=== PATIENT | female | born 1940 | race Caucasian/White ===

== ENCOUNTER 2023-05-20 18:28 | Emergency (ER) | payer OTHER ==
[~2023-05-20] VITALS: Ht 149.9 cm; Wt 45.6 kg
[2023-05-20 18:48] LABS: BASOPHILS % (AUTO) 0.6 % (0-1); EOSINOPHILS # (AUTO) 0.1 X10'3 (0-0.9); EOSINOPHILS % (AUTO) 0.8 % (0-6); HEMATOCRIT 41.1 % (35.0-45.0); HEMOGLOBIN 13.9 g/dl (12.0-16.0); LYMPHOCYTES # (AUTO) 1.7 X10'3 (1.1-4.8); LYMPHOCYTES % (AUTO) 19.9 % (21-51); MEAN CORPUSCULAR HEMOGLOBIN 32.8 PG (27.0-31.0); MEAN CORPUSCULAR HGB CONC 33.9 g/dL (33.0-36.5); MEAN CORPUSCULAR VOLUME 96.8 FL (78-98); MEAN PLATELET VOLUME 7.5 FL (7.4-10.4); MONOCYTES # (AUTO) 0.7 X10'3 (0-0.9); MONOCYTES % (AUTO) 7.6 % (2-12); NEUTROPHILS # (AUTO) 6.2 X10'3 (1.8-7.7); NEUTROPHILS % (AUTO) 71.1 % (42-75); PLATELET COUNT 384 X10'3 (140-440); RED BLOOD COUNT 4.25 X10'6 (4.20-5.60); RED CELL DISTRIBUTION WIDTH 13.1 % (11.5-14.5); WHITE BLOOD COUNT 8.6 X10'3 (4.5-11.0)
[2023-05-20 19:06] LABS: ALANINE AMINOTRANSFERASE 14 U/L (12-78); ALBUMIN 4.3 G/DL (3.4-5.0); ALBUMIN/GLOBULIN RATIO 1.2 (1.1-1.5); ALKALINE PHOSPHATASE 42 IU/L (46-116); ASPARTATE AMINO TRANSFERASE 13 U/L (10-37); BILIRUBIN,TOTAL 0.8 MG/DL (0.1-1.0); BLOOD UREA NITROGEN 4 MG/DL (7-18); BUN/CREATININE RATIO 4.4 (10.0-20.0); CALCIUM 9.2 MG/DL (8.5-10.1); GLUCOSE 125 MG/DL (70-104); PRO BRAIN NATRIURETIC PEPTIDE 204 PG/ML (0-450); TOTAL CARBON DIOXIDE 26.9 MMOL/L (24-32); TOTAL PROTEIN 7.8 G/DL (6.4-8.2); eCRCL 33 ML/MIN; eGFR 60 ML/MIN
[2023-05-20 19:16] LABS: ANION GAP 9 (8-16); CHLORIDE 98 MMOL/L (99-107); POTASSIUM 3.2 MMOL/L (3.5-5.1); SODIUM 134 MMOL/L (135-145)
[2023-05-20] MEDS ORDERED: sucralfate 1 gm tablet PO ONE (22:50)
[2023-05-20] MEDS ORDERED: famotidine/PF 10 mg/ml inj IV ONE (22:50)
[2023-05-20] MEDS ORDERED: ondansetron/PF 4mg/2ml inj IV ONE (22:50)
[2023-05-20] MEDS ORDERED: mag hydrox/Alum hydrox/simeth 30ml oral suspension PO ONE (22:50)
[2023-05-20] MEDS: morphine 2 MG/ML inj. syringe IV PRN (23:00)
[2023-05-20] MEDS ORDERED: potassium chloride 8mEq ER tablet PO STA (23:22)
[2023-05-21] MEDS ORDERED: MAG355OR18 PO (00:48)
[2023-05-21] MEDS ORDERED: PANT-47 PO (00:48)
[2023-05-21] MEDS ORDERED: ONDA4TAB12 PO (00:48)
[2023-05-21] MEDS ORDERED: SUCR1TAB34 PO (00:48)
[2023-05-21] MEDS ORDERED: FAMO-129 PO (00:48)
[2023-05-21 01:00] VITALS: RESP 18
[2023-05-21] MEDS: morphine 2 MG/ML inj. syringe IV PRN (01:00)
[2023-05-21 01:10] VITALS: BP 158/92; PULSE 68; TEMP 98.1; O2SAT 99
== END 2023-05-21 01:07 | disposition home or self-care (01) ==
LOC: ER 18:28 → EDSEX 18:28 → ER 05-21 01:07
DX: R10.30 Lower abdominal pain, unspecified (principal); R51.9 Headache, unspecified; R19.7 Diarrhea, unspecified
CPT/HCPCS: 36415; 71045; 76700; 80053; 83880; 84484; 85025; 93005; 96374; 96375; 96376; 99285; J2270; J2405; J3490

== ENCOUNTER 2024-01-04 23:31 | Inpatient (IN) | payer MEDICARE, OTHER ==
[~2024-01-04] VITALS: Ht 149.9 cm; Wt 39.0 kg
[~2024-01-04 23:31] MED LIST: FAMO-129 PO; ONDA-243 PO; PANT-47 PO; SUCR1TAB34 PO
[2024-01-05] VITALS (46 sets, daily range): BP systolic 85–151; BP diastolic 41–73; PULSE 64–104; RESP 8–19; O2SAT 95–100
[2024-01-05 00:17] LABS: BASOPHILS # (AUTO) 0.1 X10'3 (0-0.2); BASOPHILS % (AUTO) 0.6 % (0-1); EOSINOPHILS # (AUTO) 0.1 X10'3 (0-0.9); EOSINOPHILS % (AUTO) 1.2 % (0-6); HEMATOCRIT 35.1 % (35.0-45.0); HEMOGLOBIN 12.1 g/dl (12.0-16.0); LYMPHOCYTES # (AUTO) 1.2 X10'3 (1.1-4.8); LYMPHOCYTES % (AUTO) 12.9 % (21-51); MEAN CORPUSCULAR HEMOGLOBIN 32.3 PG (27.0-31.0); MEAN CORPUSCULAR HGB CONC 34.4 g/dL (33.0-36.5); MEAN CORPUSCULAR VOLUME 93.9 FL (78-98); MEAN PLATELET VOLUME 7.8 FL (7.4-10.4); MONOCYTES # (AUTO) 0.7 X10'3 (0-0.9); MONOCYTES % (AUTO) 7.2 % (2-12); NEUTROPHILS # (AUTO) 7.3 X10'3 (1.8-7.7); NEUTROPHILS % (AUTO) 78.1 % (42-75); PLATELET COUNT 334 X10'3 (140-440); RED BLOOD COUNT 3.74 X10'6 (4.20-5.60); RED CELL DISTRIBUTION WIDTH 13.8 % (11.5-14.5); WHITE BLOOD COUNT 9.4 X10'3 (4.5-11.0)
[2024-01-05] MEDS: ondansetron/PF 4mg/2ml inj IV ONE (00:30)
[2024-01-05] MEDS: normal saline 1000ml 1,000 ML IV ONE (00:30)
[2024-01-05] MEDS: morphine 2 MG/ML inj. syringe IV ONE ×2 (00:31→01:00)
[2024-01-05 00:44] LABS: ALANINE AMINOTRANSFERASE 9 U/L (12-78); ALBUMIN 3.2 G/DL (3.4-5.0); ALKALINE PHOSPHATASE 30 IU/L (46-116); ANION GAP 11 (8-16); ASPARTATE AMINO TRANSFERASE 13 U/L (10-37); BILIRUBIN,TOTAL 0.3 MG/DL (0.1-1.0); BLOOD UREA NITROGEN 8 MG/DL (7-18); BUN/CREATININE RATIO 11.1 (10.0-20.0); CALCIUM 8.5 MG/DL (8.5-10.1); CHLORIDE 97 MMOL/L (99-107); CREATININE 0.72 MG/DL (0.40-0.90); GLUCOSE 99 MG/DL (70-104); LIPASE 32 U/L (16-77); PRO BRAIN NATRIURETIC PEPTIDE 421 PG/ML (0-450); SODIUM 132 MMOL/L (135-145); TOTAL CARBON DIOXIDE 24.2 MMOL/L (24-32); TOTAL PROTEIN 6.3 G/DL (6.4-8.2); eCRCL 35 ML/MIN; eGFR 78 ML/MIN
[2024-01-05 00:45] LABS: POTASSIUM 2.1 MMOL/L (3.5-5.1)
[2024-01-05] MEDS ORDERED: iohexol 300mg/ml 100ml inj. ONE (01:01)
[2024-01-05 03:04] LABS: BILIRUBIN,URINE NEGATIVE (Neg); CLARITY,URINE CLEAR (Clear); COLOR,URINE STRAW (Yellow); GLUCOSE, URINE NEGATIVE (Neg); KETONES,URINE NEGATIVE (Neg); LEUKOCYTE ESTERASE ,URINE NEGATIVE (Neg); NITRITES, URINE NEGATIVE (Neg); OCCULT BLOOD,URINE NEGATIVE (Neg); PH,URINE 6.5 (4.8-8.0); PROTEIN,URINE NEGATIVE (Neg); UROBILINOGEN,URINE 0.2 E.U/dL (0.2-1.0)
[2024-01-05 03:09] LABS: UA COLLECTION TYPE CLN CATCH MIDSTREAM
[2024-01-05] MEDS ORDERED: potassium CL 10mEq/100ml bag 100 ML IV SCH (03:25)
[2024-01-05] MEDS: potassium Cl 20 mEq SR tablet PO STA (04:21)
[2024-01-05] MEDS: HYDROmorphone 1 mg/ml syringe IV ONE (04:21)
[2024-01-05] MEDS: potassium CL 10mEq/100ml bag 100 ML IV SCH ×2 (04:29→05:37)
[2024-01-05] MEDS: pantoprazole 40 MG vial IV ONE (05:03)
[2024-01-05] MEDS ORDERED: potassium Cl 20 mEq SR tablet PO PRN ×2 (05:05)
[2024-01-05] MEDS ORDERED: magnesium hydroxide 30ml (MOM) UD suspension PO PRN (05:05)
[2024-01-05] MEDS ORDERED: magnesium Cl slow-release 64mg tablet PO PRN (05:05)
[2024-01-05] MEDS ORDERED: HYDROmorphone inj. 0.5 MG/0.5 ML DISP.SYRIN IV PRN (05:05)
[2024-01-05] MEDS ORDERED: potassium Cl 40MEQ/1/2NS 520ml 520 ML IV PRN (05:05)
[2024-01-05] MEDS ORDERED: mag hydrox/Alum hydrox/simeth 30ml oral suspension PO PRN (05:05)
[2024-01-05] MEDS ORDERED: acetaminophen 325mg tablet PO PRN (05:05)
[2024-01-05] MEDS ORDERED: morphine 2 MG/ML inj. syringe IV PRN (05:05)
[2024-01-05] MEDS: piperacillin/tazo 3.375gm/50ml 50 ML IV SCH (05:06)
[2024-01-05] MEDS ORDERED: IBUP-1986 PO (05:30)
[2024-01-05] MEDS ORDERED: ATOR40TA72 PO (05:30)
[2024-01-05] MEDS ORDERED: SUCR1TAB PO (05:30)
[2024-01-05] MEDS ORDERED: DONE-46 PO (05:30)
[2024-01-05] MEDS ORDERED: AMLO5TAB16 PO (05:30)
[2024-01-05] MEDS ORDERED: VENL37.589 PO (05:30)
[2024-01-05] MEDS ORDERED: BUSP10TA3 PO (05:30)
[2024-01-05] MEDS ORDERED: ONDA-243 PO (05:30)
[2024-01-05] MEDS: normal saline 1000ml 1,000 ML IV SCH (05:54)
[2024-01-05 06:07] LABS: APTT 25 SECONDS (22-32); PROTHROMBIN TIME 10.3 SECONDS (9.0-12.0)
[2024-01-05] MEDS ORDERED: midazolam 1 mg/ML 2ml injection ONE (06:07)
[2024-01-05] MEDS ORDERED: fentaNYL/PF 50MCG/1 ML 2ML syringe ONE (06:07)
[2024-01-05] MEDS ORDERED: ceFOXitin 2,000 MG/NS 100 ML ADD-VANTAGE bag IV ONE (06:12)
[2024-01-05 06:15] LABS: MAGNESIUM 1.4 MG/DL (1.5-2.4)
[2024-01-05 06:22] LABS: POTASSIUM 2.2 MMOL/L (3.5-5.1)
[2024-01-05] MEDS ORDERED: ePHEDrine 50MG/ML INJ. ONE (07:14)
[2024-01-05] MEDS ORDERED: propofol inj 20 ML IV ONE (07:14)
[2024-01-05] MEDS ORDERED: 0.9 % SODIUM CHLORIDE 10 ML VIAL ONE (07:14)
[2024-01-05] MEDS ORDERED: LIDOcaine 2% (20mg/ml) 5ml vial ONE (07:14)
[2024-01-05] MEDS ORDERED: rocuronium 10mg/ml inj IV ONE (07:14)
[2024-01-05] MEDS ORDERED: LIDOcaine 1% (10mg/ml) 2ml vial ONE (07:15)
[2024-01-05] MEDS ORDERED: dexamethasone sod phosphate 4mg/ml inj. ONE (07:16)
[2024-01-05] MEDS ORDERED: ondansetron/PF 4mg/2ml inj ONE (07:16)
[2024-01-05] MEDS: BUPIVACAINE liposomal/PF 13.3 MG/ML vial IM ONE (07:26)
[2024-01-05] MEDS: BUPIVAcaine/PF 2.5mg/ml (0.25%) 10ml vial ONE (07:26)
[2024-01-05] MEDS ORDERED: labetalol 20mg/4ml (5mg/ml) syringe IV PRN (07:30)
[2024-01-05] MEDS: ringers solution, lacted 1,000 ML IV SCH (07:30)
[2024-01-05] MEDS ORDERED: ondansetron/PF 4mg/2ml inj IV PRN (07:30)
[2024-01-05] MEDS ORDERED: proCHLORperazine 10 MG/2 ml inj IV PRN (07:30)
[2024-01-05] MEDS ORDERED: hydrALAZINE 20mg/ml inj. IV PRN (07:30)
[2024-01-05] MEDS: docusate sod 100mg capsule PO SCH (08:00)
[2024-01-05] MEDS ORDERED: pantoprazole 40MG/NS 100ML BAG 100 ML IV SCH (08:00)
[2024-01-05] MEDS ORDERED: glycopyrrolate 0.2mg/ml inj ONE (08:13)
[2024-01-05] MEDS ORDERED: neostigmine methylsulfate 1 MG/ML 10ml vial ONE (08:13)
[2024-01-05] MEDS ORDERED: sugammadex 200mg/2ml injection IV ONE (08:19)
[2024-01-05 08:43] LABS: ABG BASE EXCESS -8.9 mmol/L (-2.0-2.0); ABG HCO3 19.3 mmol/L (22.0-26.0); ABG OXYGEN SATURATION 91.2 % (92-98.5); ABG PCO2 (T) 49.7 mmHg (32.0-45.0); ABG PH (T) 7.203 (7.350-7.450); ABG PO2 (T) 67.8 mmHg (75.0-100.0); FCOHb 0.9 % (0.5-1.5); FHHb 8.7 % (0.0-5.0); FLOW 10 L/min; FMetHb 0.1 % (0.0-1.5); FO2Hb 90.3 % (94-97); MODE MASK - SIMPLE; PATIENT TEMPERATURE 36.3; TOTAL HEMOGLOBIN 12.4 G/dl (12.0-16.0)
[2024-01-05] MEDS: meperidine/PF 25mg/ml syringe IV PRN (08:44)
[2024-01-05 08:47] LABS: ISTAT ANION GAP 12 (8-12); ISTAT BUN 6 mg/dL (7-18); ISTAT CL 103 mmol/L (99-107); ISTAT CREATININE 0.5 mg/dL (0.6-1.1); ISTAT GLUCOSE 118 mg/dL (70-104); ISTAT HGB 11.6 g/dl (12.0-16.0); ISTAT Hct 34 %PCV (35-45); ISTAT IONIZED CALCIUM 1.13 mmol/L (1.03-1.32); ISTAT K 3.4 mmol/L (3.5-5.1); ISTAT NA 135 mmol/L (135-145); ISTAT TOTAL CO2 20 mmol/L (24-32); ISTAT eGFR > 90 ML/MIN
[2024-01-05] MEDS: pantoprazole 40MG/NS 100ML BAG 100 ML IV SCH (09:07)
[2024-01-05] MEDS: HYDROmorphone/PF 0.2 MG/ML SYRINGE IV PRN ×2 (09:25→18:48)
[2024-01-05] MEDS: morphine 2 MG/ML inj. syringe IV PRN ×2 (09:31→21:42)
[2024-01-05 09:49] LABS: ABG BASE EXCESS -8.6 mmol/L (-2.0-2.0); ABG HCO3 19.5 mmol/L (22.0-26.0); ABG OXYGEN SATURATION 90.2 % (92-98.5); ABG PCO2 (T) 51.4 mmHg (32.0-45.0); ABG PH (T) 7.198 (7.350-7.450); ABG PO2 (T) 67.4 mmHg (75.0-100.0); FCOHb 0.8 % (0.5-1.5); FHHb 9.7 % (0.0-5.0); FLOW 2 L/min; FMetHb 0.3 % (0.0-1.5); FO2Hb 89.2 % (94-97); MODE NASAL CANNULA; TOTAL HEMOGLOBIN 12.9 G/dl (12.0-16.0)
[2024-01-05] MEDS: sodium bicarbonate 1meq/ml inj 150 ML in dextrose 5%-water 1,000 ML IV SCH (11:00)
[2024-01-05 13:04] LABS: ABG BASE EXCESS -5.1 mmol/L (-2.0-2.0); ABG HCO3 22.2 mmol/L (22.0-26.0); ABG OXYGEN SATURATION 96.6 % (92-98.5); ABG PCO2 (T) 50.1 mmHg (32.0-45.0); ABG PH (T) 7.262 (7.350-7.450); ABG PO2 (T) 90.6 mmHg (75.0-100.0); FCOHb 0.5 % (0.5-1.5); FHHb 3.4 % (0.0-5.0); FLOW 2 L/min; FO2Hb 96.1 % (94-97); MODE NASAL CANNULA; PATIENT TEMPERATURE 36.4; TOTAL HEMOGLOBIN 11.7 G/dl (12.0-16.0)
[2024-01-05 13:19] LABS: ALBUMIN 2.4 G/DL (3.4-5.0); ANION GAP 8 (8-16); BLOOD UREA NITROGEN 6 MG/DL (7-18); BUN/CREATININE RATIO 9.5 (10.0-20.0); CALCIUM 7.1 MG/DL (8.5-10.1); CHLORIDE 104 MMOL/L (99-107); CREATININE 0.63 MG/DL (0.40-0.90); GLUCOSE 150 MG/DL (70-104); SODIUM 136 MMOL/L (135-145); TOTAL CARBON DIOXIDE 24.1 MMOL/L (24-32); eCRCL 41 ML/MIN; eGFR 90 ML/MIN
[2024-01-05 13:22] LABS: POTASSIUM 2.6 MMOL/L (3.5-5.1)
[2024-01-05] MEDS: potassium Cl 20mEq/100mL bag 100 ML IV SCH (13:48)
[2024-01-05 14:12] LABS: MAGNESIUM 1.1 MG/DL (1.5-2.4)
[2024-01-05] MEDS ORDERED: potassium CL 10mEq/100ml bag 100 ML IV PRN (14:20)
[2024-01-05] MEDS: magnesium sulf-water 4G/100mL 100 ML IV PRN (14:23)
[2024-01-05] MEDS: potassium Cl 20mEq/100mL bag 100 ML IV PRN (17:10)
[2024-01-05] MEDS: magnesium sulf-water 2g/50mL 50 ML IV PRN (18:48)
[2024-01-06] VITALS (21 sets, daily range): BP systolic 94–150; BP diastolic 36–109; PULSE 62–79; RESP 11–22; TEMP 97.8; O2SAT 90–99
[2024-01-06 01:40] LABS: BASOPHILS % (AUTO) 0 % (0-1); EOSINOPHILS % (AUTO) 0 % (0-6); HEMATOCRIT 29.5 % (35.0-45.0); HEMOGLOBIN 9.8 g/dl (12.0-16.0); LYMPHOCYTES # (AUTO) 0.5 X10'3 (1.1-4.8); LYMPHOCYTES % (AUTO) 2.9 % (21-51); MEAN CORPUSCULAR HEMOGLOBIN 31.5 PG (27.0-31.0); MEAN CORPUSCULAR HGB CONC 33.3 g/dL (33.0-36.5); MEAN CORPUSCULAR VOLUME 94.7 FL (78-98); MEAN PLATELET VOLUME 8.3 FL (7.4-10.4); MONOCYTES # (AUTO) 0.9 X10'3 (0-0.9); MONOCYTES % (AUTO) 4.8 % (2-12); NEUTROPHILS # (AUTO) 16.6 X10'3 (1.8-7.7); NEUTROPHILS % (AUTO) 92.3 % (42-75); PLATELET COUNT 278 X10'3 (140-440); RED BLOOD COUNT 3.12 X10'6 (4.20-5.60); RED CELL DISTRIBUTION WIDTH 13.8 % (11.5-14.5); WHITE BLOOD COUNT 17.9 X10'3 (4.5-11.0)
[2024-01-06 01:55] LABS: ALANINE AMINOTRANSFERASE 13 U/L (12-78); ALBUMIN 2.1 G/DL (3.4-5.0); ALBUMIN/GLOBULIN RATIO 0.8 (1.1-1.5); ALKALINE PHOSPHATASE 21 IU/L (46-116); ANION GAP 8 (8-16); ASPARTATE AMINO TRANSFERASE 15 U/L (10-37); BILIRUBIN,TOTAL 0.4 MG/DL (0.1-1.0); BLOOD UREA NITROGEN 8 MG/DL (7-18); CALCIUM 7.3 MG/DL (8.5-10.1); CHLORIDE 106 MMOL/L (99-107); CREATININE 0.57 MG/DL (0.40-0.90); GLUCOSE 122 MG/DL (70-104); MAGNESIUM 3.1 MG/DL (1.5-2.4); PHOSPHORUS 2.3 MG/DL (2.3-4.5); POTASSIUM 3.8 MMOL/L (3.5-5.1); SODIUM 138 MMOL/L (135-145); TOTAL CARBON DIOXIDE 24.2 MMOL/L (24-32); TOTAL PROTEIN 4.8 G/DL (6.4-8.2); eCRCL 45 ML/MIN; eGFR > 90 ML/MIN
[2024-01-06 04:38] LABS: ABG BASE EXCESS -3.3 mmol/L (-2.0-2.0); ABG HCO3 20.9 mmol/L (22.0-26.0); ABG OXYGEN SATURATION 97.1 % (92-98.5); ABG PCO2 (T) 34.6 mmHg (32.0-45.0); ABG PO2 (T) 95.3 mmHg (75.0-100.0); FCOHb 0.3 % (0.5-1.5); FHHb 2.9 % (0.0-5.0); FMetHb 0.3 % (0.0-1.5); FO2Hb 96.5 % (94-97); PATIENT TEMPERATURE 37.1; TOTAL HEMOGLOBIN 10.6 G/dl (12.0-16.0)
[2024-01-06] MEDS: HYDROmorphone inj. 0.5 MG/0.5 ML DISP.SYRIN IV PRN (09:04)
[2024-01-06] MEDS: ondansetron/PF 4mg/2ml inj IV PRN (13:39)
[2024-01-06] MEDS: HYDROcodone/acetaminophen 5mg/325mg tablet PO PRN (17:33)
[2024-01-07] VITALS (9 sets, daily range): BP systolic 104–144; BP diastolic 48–75; PULSE 63–69; RESP 12–20; TEMP 97.1–98.8; O2SAT 91–98
[2024-01-07 07:23] LABS: BASOPHILS % (AUTO) 0.3 % (0-1); EOSINOPHILS % (AUTO) 0.1 % (0-6); HEMATOCRIT 35.7 % (35.0-45.0); HEMOGLOBIN 11.4 g/dl (12.0-16.0); LYMPHOCYTES % (AUTO) 6.5 % (21-51); MEAN CORPUSCULAR HEMOGLOBIN 31.3 PG (27.0-31.0); MEAN CORPUSCULAR HGB CONC 31.8 g/dL (33.0-36.5); MEAN CORPUSCULAR VOLUME 98.4 FL (78-98); MEAN PLATELET VOLUME 8.5 FL (7.4-10.4); MONOCYTES # (AUTO) 0.6 X10'3 (0-0.9); MONOCYTES % (AUTO) 4.3 % (2-12); NEUTROPHILS # (AUTO) 13.2 X10'3 (1.8-7.7); NEUTROPHILS % (AUTO) 88.8 % (42-75); PLATELET COUNT 255 X10'3 (140-440); RED BLOOD COUNT 3.63 X10'6 (4.20-5.60); RED CELL DISTRIBUTION WIDTH 14.5 % (11.5-14.5); WHITE BLOOD COUNT 14.9 X10'3 (4.5-11.0)
[2024-01-07 07:39] LABS: ALANINE AMINOTRANSFERASE 22 U/L (12-78); ALBUMIN 2.3 G/DL (3.4-5.0); ALBUMIN/GLOBULIN RATIO 0.7 (1.1-1.5); ALKALINE PHOSPHATASE 43 IU/L (46-116); ANION GAP 8 (8-16); ASPARTATE AMINO TRANSFERASE 27 U/L (10-37); BILIRUBIN,TOTAL 0.6 MG/DL (0.1-1.0); BLOOD UREA NITROGEN 6 MG/DL (7-18); BUN/CREATININE RATIO 11.1 (10.0-20.0); CALCIUM 8.2 MG/DL (8.5-10.1); CHLORIDE 108 MMOL/L (99-107); CREATININE 0.54 MG/DL (0.40-0.90); GLUCOSE 72 MG/DL (70-104); MAGNESIUM 2.2 MG/DL (1.5-2.4); PHOSPHORUS 2.2 MG/DL (2.3-4.5); POTASSIUM 3.5 MMOL/L (3.5-5.1); SODIUM 139 MMOL/L (135-145); TOTAL CARBON DIOXIDE 22.6 MMOL/L (24-32); TOTAL PROTEIN 5.6 G/DL (6.4-8.2); eCRCL 49 ML/MIN; eGFR > 90 ML/MIN
[2024-01-08 02:00] VITALS: BP 135/69; PULSE 65; RESP 18; TEMP 97.4; O2SAT 98
[2024-01-08 06:00] VITALS: BP 123/59; PULSE 69; RESP 18; TEMP 98.2; O2SAT 97
[2024-01-08 06:50] LABS: BASOPHILS % (AUTO) 0.3 % (0-1); EOSINOPHILS # (AUTO) 0.1 X10'3 (0-0.9); EOSINOPHILS % (AUTO) 0.5 % (0-6); HEMATOCRIT 36.2 % (35.0-45.0); HEMOGLOBIN 12.1 g/dl (12.0-16.0); LYMPHOCYTES # (AUTO) 0.9 X10'3 (1.1-4.8); LYMPHOCYTES % (AUTO) 8.2 % (21-51); MEAN CORPUSCULAR HEMOGLOBIN 31.9 PG (27.0-31.0); MEAN CORPUSCULAR HGB CONC 33.4 g/dL (33.0-36.5); MEAN CORPUSCULAR VOLUME 95.6 FL (78-98); MEAN PLATELET VOLUME 8.5 FL (7.4-10.4); MONOCYTES # (AUTO) 0.5 X10'3 (0-0.9); MONOCYTES % (AUTO) 4.4 % (2-12); NEUTROPHILS % (AUTO) 86.6 % (42-75); PLATELET COUNT 307 X10'3 (140-440); RED BLOOD COUNT 3.79 X10'6 (4.20-5.60); RED CELL DISTRIBUTION WIDTH 13.7 % (11.5-14.5); WHITE BLOOD COUNT 10.4 X10'3 (4.5-11.0)
[2024-01-08 07:06] LABS: ALANINE AMINOTRANSFERASE 24 U/L (12-78); ALBUMIN 2.2 G/DL (3.4-5.0); ALBUMIN/GLOBULIN RATIO 0.6 (1.1-1.5); ALKALINE PHOSPHATASE 42 IU/L (46-116); ANION GAP 13 (8-16); ASPARTATE AMINO TRANSFERASE 26 U/L (10-37); BILIRUBIN,TOTAL 0.8 MG/DL (0.1-1.0); BLOOD UREA NITROGEN 7 MG/DL (7-18); BUN/CREATININE RATIO 13.5 (10.0-20.0); CALCIUM 8.4 MG/DL (8.5-10.1); CHLORIDE 103 MMOL/L (99-107); CREATININE 0.52 MG/DL (0.40-0.90); GLUCOSE 50 MG/DL (70-104); MAGNESIUM 1.7 MG/DL (1.5-2.4); PHOSPHORUS 2.3 MG/DL (2.3-4.5); SODIUM 140 MMOL/L (135-145); TOTAL CARBON DIOXIDE 24.2 MMOL/L (24-32); TOTAL PROTEIN 5.7 G/DL (6.4-8.2); eCRCL 51 ML/MIN; eGFR > 90 ML/MIN
[2024-01-08 08:00] VITALS: RESP 12; O2SAT 97
[2024-01-08] MEDS ORDERED: magnesium sulf-water 2g/50mL 50 ML IV PRN (09:00)
[2024-01-08] MEDS ORDERED: potassium Cl 40MEQ/1/2NS 520ml 520 ML IV PRN (09:00)
[2024-01-08] MEDS ORDERED: potassium Cl 20 mEq SR tablet PO PRN (09:00)
[2024-01-08] MEDS ORDERED: magnesium Cl slow-release 64mg tablet PO PRN (09:00)
[2024-01-08] MEDS ORDERED: magnesium sulf-water 4G/100mL 100 ML IV PRN (09:00)
[2024-01-08] MEDS: potassium Cl 20 mEq SR tablet PO PRN (09:16)
[2024-01-08 11:00] VITALS: BP 133/57; PULSE 65; RESP 18; TEMP 97.4; O2SAT 96
[2024-01-08 18:00] VITALS: BP 153/82; PULSE 81; RESP 26; TEMP 96.6; O2SAT 94
[2024-01-08] MEDS: K and/or MAG REPLACEMENT MC SCH (20:00)
[2024-01-08 22:00] VITALS: BP 153/55; PULSE 59; RESP 20; TEMP 97.5; O2SAT 99
[2024-01-08] MEDS: HYDROcodone/acetaminophen 10/325mg tab PO PRN (22:55)
[2024-01-09] VITALS (8 sets, daily range): BP systolic 128–163; BP diastolic 62–81; PULSE 63–105; RESP 12–19; TEMP 97.5–98.4; O2SAT 92–97
[2024-01-09] MEDS: NUT.TX.IMPAIRED DIGEST FXN (Ensure Clear) 237 ML PO SCH (18:30)
[2024-01-09] MEDS: pantoprazole 40mg Tablet.DR PO SCH (22:14)
[2024-01-10] VITALS (7 sets, daily range): BP systolic 105–159; BP diastolic 48–88; PULSE 60–75; RESP 12–22; TEMP 97.2–98.7; O2SAT 94–99
[2024-01-10 06:56] LABS: BASOPHILS % (AUTO) 0.5 % (0-1); EOSINOPHILS # (AUTO) 0.1 X10'3 (0-0.9); EOSINOPHILS % (AUTO) 2.2 % (0-6); HEMATOCRIT 32.4 % (35.0-45.0); HEMOGLOBIN 11.3 g/dl (12.0-16.0); LYMPHOCYTES # (AUTO) 1.1 X10'3 (1.1-4.8); LYMPHOCYTES % (AUTO) 16.7 % (21-51); MEAN CORPUSCULAR HEMOGLOBIN 32.5 PG (27.0-31.0); MEAN CORPUSCULAR HGB CONC 34.8 g/dL (33.0-36.5); MEAN CORPUSCULAR VOLUME 93.2 FL (78-98); MEAN PLATELET VOLUME 8.8 FL (7.4-10.4); MONOCYTES # (AUTO) 0.9 X10'3 (0-0.9); NEUTROPHILS # (AUTO) 4.6 X10'3 (1.8-7.7); NEUTROPHILS % (AUTO) 67.6 % (42-75); PLATELET COUNT 269 X10'3 (140-440); RED BLOOD COUNT 3.48 X10'6 (4.20-5.60); RED CELL DISTRIBUTION WIDTH 14.1 % (11.5-14.5); WHITE BLOOD COUNT 6.8 X10'3 (4.5-11.0)
[2024-01-10 10:56] LABS: ALANINE AMINOTRANSFERASE 28 U/L (12-78); ALBUMIN 2.6 G/DL (3.4-5.0); ALBUMIN/GLOBULIN RATIO 0.7 (1.1-1.5); ALKALINE PHOSPHATASE 42 IU/L (46-116); ANION GAP 9 (8-16); ASPARTATE AMINO TRANSFERASE 20 U/L (10-37); BILIRUBIN,TOTAL 0.7 MG/DL (0.1-1.0); BLOOD UREA NITROGEN 4 MG/DL (7-18); BUN/CREATININE RATIO 6.9 (10.0-20.0); CALCIUM 8.8 MG/DL (8.5-10.1); CHLORIDE 104 MMOL/L (99-107); CREATININE 0.58 MG/DL (0.40-0.90); GLUCOSE 106 MG/DL (70-104); MAGNESIUM 1.6 MG/DL (1.5-2.4); POTASSIUM 3.6 MMOL/L (3.5-5.1); SODIUM 138 MMOL/L (135-145); TOTAL CARBON DIOXIDE 24.8 MMOL/L (24-32); TOTAL PROTEIN 6.2 G/DL (6.4-8.2); eCRCL 46 ML/MIN; eGFR > 90 ML/MIN
[2024-01-10] MEDS: sucralfate 1 gm tablet PO SCH (14:00)
[2024-01-10] MEDS: metoclopramide 5 mg/ml inj IV PRN (17:49)
[2024-01-10] MEDS: metoclopramide 5 mg/ml inj IV SCH (23:30)
[2024-01-11 02:00] VITALS: BP 145/65; PULSE 88; RESP 21; TEMP 98.3; O2SAT 96
[2024-01-11 06:00] VITALS: BP 128/53; PULSE 65; RESP 16; TEMP 98; O2SAT 98
[2024-01-11 07:55] VITALS: RESP 16; O2SAT 98
[2024-01-11] MEDS: amLODIPine 5mg tablet PO SCH (08:42)
[2024-01-11] MEDS: busPIRone 5mg tablet PO SCH (08:44)
[2024-01-11] MEDS: atorvastatin 20mg tablet PO SCH (08:45)
[2024-01-11] MEDS: donepezil 5mg tablet PO SCH (08:46)
[2024-01-11] MEDS: venlafaxine XR 37.5mg cap (Q24H) PO SCH (08:51)
[2024-01-11] MEDS ORDERED: PANT40TA54 PO (10:14)
[2024-01-11] MEDS ORDERED: POTA-207 PO (10:14)
[2024-01-11 11:00] VITALS: BP 133/53; PULSE 70; RESP 16; TEMP 98; O2SAT 100
== END 2024-01-11 14:13 | disposition home health service (06) | DRG 326 ==
LOC: ER 23:31 → ED HOLD 01-05 05:09 → CICU 2S 01-05 10:09 → PCU 3S 01-06 20:35
PROVIDERS: ADMIT Student in an Organized Health Care Education/Training Program; ATTEND Family Medicine
PROC: 0DQ60ZZ Repair Stomach, Open Approach (ICD-10-PCS; principal; 2024-01-05 06:12)
DX: K25.5 Chronic or unspecified gastric ulcer with perforation (principal); E43 Unspecified severe protein-calorie malnutrition; Z68.1 Body mass index [BMI] 19.9 or less, adult; F03.90 Unspecified dementia, unspecified severity, without behavioral disturbance, psychotic disturbance, mood disturbance, and anxiety; D72.829 Elevated white blood cell count, unspecified; E83.42 Hypomagnesemia; E83.39 Other disorders of phosphorus metabolism; I10 Essential (primary) hypertension; E87.6 Hypokalemia; Z79.899 Other long term (current) drug therapy
CPT/HCPCS: 36415; 36600; 71045; 74177; 80047; 80048; 80053; 81003; 82803; 82948; 83690; 83735; 83880; 84100; 84132; 84484; 85018; 85025; 85610; 85730; 86885; 86900; 86901; 86920; 87070; 87075; 87081; 93005; 96365; 96367; 97110; 97116; 97161; 97530; 97535; 99285; A4615; A4618; A6213; A6253; A6258; A6402; A6407; A6449; A7000; C1751; C1758; C9290; G0378; J0694; J1100; J1170; J2175; J2250; J2270; J2405; J2470; J2543; J2704; J2710; J2765; J3010; J3475; J3480; J3490; J7030; J7040; J7070; J7120; Q9967